=== PATIENT | female | born 2000 | race Caucasian/White ===

== ENCOUNTER 2019-11-14 12:32 | Emergency (ER) | payer SELFPAY ==
[2019-11-14 12:40] VITALS: BP 112/66; PULSE 94; TEMP 97.9; BMI 21.4
--- OUTSIDE RECORDS SUMMARY | 2019-11-14 12:46 | XMS ---
:2000 Author Organization [facility] Support Name Relationship Address Phone BEST BUY Unavailable [address] [place], [place] RUBEN NGUYỄN MOTHER [address] [place] [address] Re-disclosure Warning The records that you are about to access may contain information from federally- assisted alcohol or drug abuse programs. If such information is present, then the following federally mandated warning applies: This information has been disclosed to you from records protected by federal confidentiality rules (42 CFR part 2). The federal rules prohibit you from making any further disclosure of this information unless further disclosure is expressly permitted by the written consent of the person to whom it pertains or as otherwise permitted by 42 CFR part 2. A general authorization for the release of medical or other information is NOT sufficient for this purpose. The Federal rules restrict any use of the information to criminally investigate or prosecute any alcohol or drug abuse patient.The records that you are about to access may contain highly sensitive health information, the redisclosure of which is protected by Article 27-F of the [facility] Public Health law. If you continue you may haveaccess to information: Regarding HIV / AIDS; Provided by facilities licensed or operated by the [facility] Office of Mental Health; or Provided by the [facility] Office for People With Developmental Disabilities. If such information is present, then the following [facility] mandated warning applies: This information has been disclosed to you from confidential records which are protected by state law. State law prohibits you from making any further disclosure of this information without the specific written consent of the person to whom it pertains, or as otherwise permitted by law. Any unauthorized further disclosure in violation of state law may result in a fine or chcf sentence or both. A general authorization for the release of medical or other information is NOT sufficient authorization for further disclosure. Insurance Providers Payer name Policy type Policy ID Covered Covered democrat's Policy P bret / Coverage democrat ID relationship to [employer] type [employer] SELF PA[employer] SP INSURANCE
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
== END 2019-11-14 13:51 | disposition home or self-care (01) ==
LOC: JERFT 12:32
DX: S42.025A Nondisplaced fracture of shaft of left clavicle, initial encounter for closed fracture (principal)
CPT/HCPCS: 73000-TC-LT-FY; 73030-TC-LT-FY; 99284-25

== ENCOUNTER 2023-06-16 01:42 | Emergency (ER) | payer OTHER ==
[2023-06-16 01:52] VITALS: RESP 18; BMI 27.4
[2023-06-16 02:33] LABS: BASO % 0.5 % (0-2.0); EOS % 1.6 % (0-4.5); HEMATOCRIT 31.6 % (32.4-45.2); HEMOGLOBIN 10.4 GM/dL (10.7-15.3); MCH 26.8 pg (25.7-33.7); MCHC 32.9 g/dl (32.0-36.0); MEAN CELL VOLUME 81.6 fl (80-96); MEAN PLT VOLUME 10.2 fl (7.5-11.1); MONO % 8.9 % (3.8-10.2); PH,URINE 6.5 (5.0-8.0); PLATELET COUNT 168 10^3/uL (134-434); RBC 3.88 M/mm3 (3.60-5.2); RDW 15.1 % (11.6-15.6); URINE APPEARANCE CLEAR; URINE BILIRUBIN NEGATIVE (NEGATIVE); URINE COLOR YELLOW; URINE GLUCOSE (UA) NEGATIVE (NEGATIVE); URINE KETONE NEGATIVE (NEGATIVE); URINE LEUK ESTERASE NEGATIVE (NEGATIVE); URINE NITRITE NEGATIVE (NEGATIVE); URINE PROTEIN NEGATIVE (NEGATIVE); WHITE BLOOD COUNT 5.6 K/mm3 (4.0-10.0)
[2023-06-16 02:54] LABS: CHLORIDE 105 mmol/L (98-107); POTASSIUM 4.1 mmol/L (3.5-5.1); SODIUM 135 mmol/L (136-145)
[2023-06-16 02:55] LABS: CALCIUM 8.3 mg/dL (8.5-10.1)
[2023-06-16 02:57] LABS: ALBUMIN 2.8 g/dl (3.4-5.0); ANION GAP 5 mmol/L (4-13); CO2 25 mmol/L (21-32); GLUCOSE,RANDOM 93 mg/dL (74-106)
[2023-06-16 03:00] LABS: CREATININE 0.9 mg/dL (0.55-1.3); SGOT/AST 9 U/L (15-37); SGPT/ALT < 6 U/L (13-61)
[2023-06-16 03:02] LABS: BILIRUBIN,TOTAL 0.3 mg/dL (0.2-1); TOT PROT 6.4 g/dl (6.4-8.2)
[2023-06-16 03:03] LABS: ALK PHOS 155 U/L (45-117)
[2023-06-16 04:27] VITALS: BP 110/72; PULSE 74; TEMP 97.5
== END 2023-06-16 04:15 | disposition home or self-care (01) ==
LOC: JER 01:42
DX: O21.9 Vomiting of pregnancy, unspecified (principal); O99.353 Diseases of the nervous system complicating pregnancy, third trimester; R51.9 Headache, unspecified; Z3A.38 38 weeks gestation of pregnancy
CPT/HCPCS: 36415; 80053; 81003; 85025; 93005; 93010; 99284-25

== ENCOUNTER 2023-07-01 07:00 | Inpatient (IN) | payer OTHER ==
[2023-07-01 08:57] VITALS: BMI 26.5
[2023-07-01] MEDS ORDERED: OXYTOCIN 30 UNITS in 0.9% NS 30 UNIT/500 ML INFUS.BAG IVPB ONE (09:16)
[2023-07-01 09:22] LABS: BASO % 0.2 % (0-2.0); HEMATOCRIT 30.3 % (32.4-45.2); HEMOGLOBIN 9.9 GM/dL (10.7-15.3); LYMPH % 29.2 % (8-40); MCH 26.6 pg (25.7-33.7); MCHC 32.8 g/dl (32.0-36.0); MEAN CELL VOLUME 81.1 fl (80-96); MEAN PLT VOLUME 10.6 fl (7.5-11.1); MONO % 6.9 % (3.8-10.2); NEUT % 62.7 % (42.8-82.8); PLATELET COUNT 137 10^3/uL (134-434); RBC 3.74 M/mm3 (3.60-5.2); RDW 15.6 % (11.6-15.6); WHITE BLOOD COUNT 5.6 K/mm3 (4.0-10.0)
[2023-07-01] MEDS: DEXTROSE 5%-LACTATED RINGERS 1,000 ML IV SCH (09:23)
[2023-07-01] MEDS: OXYTOCIN 30 UNITS in 0.9% NS 30 UNIT/500 ML INFUS.BAG IVPB SCH (09:24)
[2023-07-01 09:25] LABS: INR 0.94 (0.83-1.09); PROTHROMBIN TIME (PATIENT) 10.6 SEC (9.7-13.0)
[2023-07-01 09:28] LABS: ACTIVATED PTT 26.9 SECONDS (25.2-36.5)
[2023-07-01 09:44] LABS: POTASSIUM 4.7 mmol/L (3.5-5.1)
[2023-07-01 09:47] LABS: BLOOD UREA NITROGEN 13.5 mg/dL (7-18); CALCIUM 8.6 mg/dL (8.5-10.1)
[2023-07-01 09:49] LABS: CREATININE 0.7 mg/dL (0.55-1.3)
[2023-07-01 12:38] LABS: HIV INTERPRETATION NEGATIVE (NEGATIVE)
[2023-07-01] MEDS ORDERED: FENTANYL/BUPIVACAINE/NS/PF - PCEA - 50 ML DISP.SYRIN EP ONE ×2 (19:04→23:17)
[2023-07-01] MEDS ORDERED: NALOXONE HCL 0.4 MG/ML VIAL IVPUSH PRN (19:09)
[2023-07-01] MEDS: ELECTROLYTE-148 SOLN 500 ML IV ONE (19:10)
[2023-07-01] MEDS ORDERED: BUPIVACAINE HCL/PF 0.25% (2.5MG/ML) 10 ML VIAL ONE (19:15)
[2023-07-01] MEDS: FENTANYL/BUPIVACAINE/NS/PF - PCEA - 50 ML DISP.SYRIN EP SCH (19:30)
[2023-07-01] MEDS: ELECTROLYTE-148 SOLN 1,000 ML IV ONE (21:00)
[2023-07-02] MEDS ORDERED: OXYTOCIN 20 UNITS in 0.9% NS 20 UNIT/1,000 ML INFUS.BAG IV ONE (00:09)
[2023-07-02] MEDS ORDERED: LIDOCAINE HCL 1% PRESERVATIVE FREE - 30ML VIAL ONE (01:05)
[2023-07-02] MEDS: METHYLERGONOVINE MALEATE 0.2 MG/1 ML AMP IM PRN (01:30)
[2023-07-02] MEDS ORDERED: MISOPROSTOL 200 MCG TABLET ONE (01:48)
[2023-07-02] MEDS: MISOPROSTOL 200 MCG TABLET NR ONE (01:50)
[2023-07-02] MEDS: OXYTOCIN 20 UNITS in 0.9% NS 20 UNIT/1,000 ML INFUS.BAG IV SCH (02:00)
[2023-07-02] MEDS ORDERED: BENZOCAINE 28 GM HEMORRHOIDAL OINTMENT TP PRN (02:06)
[2023-07-02] MEDS ORDERED: BISACODYL 10 MG SUPP.RECT RC PRN (02:06)
[2023-07-02] MEDS ORDERED: WITCH HAZEL 50% (TUCKS) 40 PAD/JAR PAD TP PRN (02:06)
[2023-07-02] MEDS ORDERED: BENZOCAINE 20% 57 GM BOTTLE TP PRN (02:06)
[2023-07-02] MEDS ORDERED: oxyCODONE HCL 5 MG TABLET ONE (04:27)
[2023-07-02] MEDS: oxyCODONE HCL 5 MG TABLET PO PRN (04:30)
[2023-07-02] MEDS: ACETAMINOPHEN 325 MG TABLET (FP) PO PRN (06:04)
[2023-07-02 06:29] LABS: BASO % 0.1 % (0-2.0); HEMATOCRIT 23.7 % (32.4-45.2); HEMOGLOBIN 7.5 GM/dL (10.7-15.3); LYMPH % 4.2 % (8-40); MCH 25.9 pg (25.7-33.7); MCHC 31.6 g/dl (32.0-36.0); MEAN PLT VOLUME 10.2 fl (7.5-11.1); MONO % 5.9 % (3.8-10.2); NEUT % 89.8 % (42.8-82.8); PLATELET COUNT 121 10^3/uL (134-434); RBC 2.89 M/mm3 (3.60-5.2); RDW 15.3 % (11.6-15.6); WHITE BLOOD COUNT 18.6 K/mm3 (4.0-10.0)
[2023-07-02] MEDS: PRENATAL VITAMINS W/ FOLIC ACID TABLET (FP) PO SCH (09:08)
[2023-07-02] MEDS: FERROUS SO4 325 MG TABLET (FP) PO SCH (09:08)
[2023-07-02] MEDS: BUTORPHANOL TARTRATE 1 MG/ML VIAL IVPB ONE (10:45)
[2023-07-02] MEDS: PROMETHAZINE HCL 25 MG/1 ML VIAL IVPB ONE (10:45)
[2023-07-02] MEDS: IBUPROFEN 600 MG TABLET (FP) PO PRN (11:23)
[2023-07-02] MEDS: SENNOSIDES/DOCUSATE COMBO (SENNA PLUS) TABLET (UD) PO PRN (20:35)
[2023-07-04 10:48] VITALS: BP 107/71; PULSE 103; RESP 17; TEMP 98.2
== END 2023-07-04 13:00 | disposition home or self-care (01) | DRG 560 ==
LOC: JLDR 07:00 → J3W 07-02 04:40
PROVIDERS: ADMIT Obstetrics & Gynecology; ATTEND Obstetrics & Gynecology
PROC: 0W8NXZZ Division of Female Perineum, External Approach (ICD-10-PCS; 2023-07-01)
PROC: 10E0XZZ Delivery of Products of Conception, External Approach (ICD-10-PCS; principal; 2023-07-02)
PROC: 10907ZC Drainage of Amniotic Fluid, Therapeutic from Products of Conception, Via Natural or Artificial Opening (ICD-10-PCS; 2023-07-02)
DX: O72.1 Other immediate postpartum hemorrhage (principal); O36.8130 Decreased fetal movements, third trimester, not applicable or unspecified; O48.0 Post-term pregnancy; O90.81 Anemia of the puerperium; D64.9 Anemia, unspecified; Z37.0 Single live birth; Z3A.40 40 weeks gestation of pregnancy
CPT/HCPCS: 36415; 80048; 85025; 85610; 85730; 86780; 86803; 86850; 86900; 86901; 87389